=== PATIENT | male | born 1970 | race Caucasian/White ===

== ENCOUNTER 2019-12-14 11:41 | Emergency (ER) | payer OTHER ==
[~2019-12-14] VITALS: Ht 172.7 cm; Wt 99.8 kg
[~2019-12-14 11:41] MED LIST: HYDACE5 PO; MELO7.5 PO; METCAR750 PO; METPRE4DP PO; NAPR500 PO; OXYACE5T PO; RXHYDACE PO; RXOXYACE PO
[2019-12-14] MEDS ORDERED: METHADONE PO (12:08)
[2019-12-14] MEDS ORDERED: Cipro500 MG PO (12:39)
== END 2019-12-14 13:00 | disposition home or self-care (01) ==
LOC: ER 11:41
DX: S91.134A Puncture wound without foreign body of right lesser toe(s) without damage to nail, initial encounter (principal); S80.11XA Contusion of right lower leg, initial encounter; Z23 Encounter for immunization; Z79.899 Other long term (current) drug therapy; W45.0XXA Nail entering through skin, initial encounter
CPT/HCPCS: 90471; 90714; 99282-25

== ENCOUNTER 2020-01-26 18:00 | Emergency (ER) | payer OTHER ==
[~2020-01-26] VITALS: Ht 172.7 cm; Wt 108.9 kg
[~2020-01-26 18:00] MED LIST changes: +Cipro500 MG PO; +METHADONE PO
[2020-01-26] MEDS ORDERED: Veetids 500500 MG PO (18:19)
[2020-01-26] MEDS ORDERED: IBU800 MG PO (18:19)
== END 2020-01-26 18:21 | disposition home or self-care (01) ==
LOC: ER 18:00
DX: K02.9 Dental caries, unspecified (principal)
CPT/HCPCS: 99282

== ENCOUNTER 2020-08-09 19:51 | Observation (INO) | payer OTHER ==
[~2020-08-09] VITALS: Ht 172.7 cm; Wt 120.1 kg
[~2020-08-09 19:51] MED LIST changes: +IBU800 MG PO; +Veetids 500500 MG PO
[2020-08-09 22:07] LABS: BASOPHILS ABSOLUTE AUTO 0.03 K/mm3 (0.00-0.23); BASOPHILS PERCENT AUTO 0 % (0-2); EOSINOPHILS ABSOLUTE AUTO 0.01 K/mm3 (0.00-0.68); EOSINOPHILS PERCENT AUTO 0 % (0-6); Hematocrit 40.3 % (37.0-53.0); Hemoglobin 12.7 g/dL (13.5-17.5); IMMATURE GRAN ABSOLUTE AUTO 0.06 K/mm3 (0.00-0.10); IMMATURE GRAN PERCENT AUTO 1 % (0-1); LYMPHOCYTES ABSOLUTE AUTO 1.13 K/mm3 (0.84-5.20); LYMPHOCYTES PERCENT AUTO 9 % (21-46); MONOCYTES ABSOLUTE AUTO 1.43 K/mm3 (0.16-1.47); MONOCYTES PERCENT AUTO 11 % (4-13); Mean Corpuscular HGB 28.9 pg (26.0-34.0); Mean Corpuscular HGB Conc 31.5 g/dL (31.5-36.5); Mean Corpuscular Volume 92 fL (80-100); Mean Platelet Volume 10.1 fL (9.1-12.4); NEUTROPHILS ABSOLUTE AUTO 10.58 K/mm3 (1.96-9.15); NEUTROPHILS PERCENT AUTO 80 % (41-73); Platelet Count 230 K/mm3 (150-400); RDW Coefficient Variation 14.4 % (11.7-14.2); RDW Standard Deviation 48.6 fL (35.1-46.3); Red Blood Cell Count 4.39 M/mm3 (4.30-5.90); White Blood Cell Count 13.24 K/mm3 (4.00-11.30)
[2020-08-09 22:25] LABS: Alanine Aminotransfer (ALT/SGP 55 U/L (12-78); Albumin, Blood 3.3 g/dL (3.4-5.0); Alk Phos 93 U/L (50-136); Anion Gap 6 mmol/L (6-16); Aspartate Aminotrans (AST/SGOT 36 U/L (12-37); Bilirubin, Total 0.2 mg/dL (0.1-1.0); Blood Urea Nitrogen 18 mg/dL (8-24); Bun/Creatinine Ratio 22.6 (12.0-20.0); CO2, Blood 32 mmol/L (21-32); Calcium, Blood 8.7 mg/dL (8.5-10.1); Chloride, Blood 105 mmol/L (98-108); Globulin, Blood 3.3 g/dL (2.2-4.0); Glomerular Filtration Rate >60 (60-); Glucose, Blood 90 mg/dL (70-99); Potassium, Blood 4.4 mmol/L (3.5-5.5); Sodium, Blood 143 mmol/L (136-145); Total Protein, Blood 6.6 g/dL (6.4-8.2)
[2020-08-10] MEDS ORDERED: MULVITA PO (01:10)
--- NOTE | 2020-08-10 01:28 | NUR ---
PT ARRIVED TO ROOM FROM ER. PT TRANSFERRED SELF FROM STRETCHER TO BED W/MIN ASSIST. LEFT FLANK/HIP VISIBLY SWOLLEN, FIRM TO PALP. PT REP NUMBNESS IN SWOLLEN AREA. PT REP PAIN IN LEFT SHOULDER, CAN ONLY LIFT ARM MINIMALLY R/T PAIN. INSTRUCTION LIBRARIAN STRONG. ABRASION NOTED JUST ABOVE LEFT KNEE. PT REP PAIN GOLDY AT THIS TIME, PILLOW PLACED BENEATH LEFT SHOULDER FOR COMFORT. PT ORIENTED TO ROOM/CALL LIGHT. PLAN TO MONITOR NAD TX PER ORDERS.
[2020-08-10 07:30] LABS: Hematocrit 37.2 % (37.0-53.0); Hemoglobin 11.9 g/dL (13.5-17.5); Mean Corpuscular HGB 29.8 pg (26.0-34.0); Mean Corpuscular Volume 93 fL (80-100); Mean Platelet Volume 10.4 fL (9.1-12.4); Platelet Count 208 K/mm3 (150-400); RDW Coefficient Variation 14.6 % (11.7-14.2); RDW Standard Deviation 49.5 fL (35.1-46.3); Red Blood Cell Count 3.99 M/mm3 (4.30-5.90); White Blood Cell Count 8.28 K/mm3 (4.00-11.30)
--- NOTE | 2020-08-10 07:37 | NUR ---
PT HAD NO ACUTE CHANGES SINCE ARRIVING TO FLOOR. LEFT HIP/FLANK REMAINS FIRM/SWOLLEN, NO SIG CHANGES NOTED IN SIZE. PT CONT TO REP NUMBNESS IN SWOLLEN AREA. LEFT SHOULDER PAINFUL W/MVMT. PT DENIED NEED FOR PAIN MEDS. PT NPO, IVF CONT PER ORDERS. REPORT GIVEN TO DAY RN.
--- NOTE | 2020-08-10 14:45 | NUR ---
DISCHARGE PT PROVIDED WITH WRITTEN AND VERBAL DISCHARGE INSTRUCTIONS. PT REPORTED PAIN MANAGED PRIOR TO DISCHARGE, PT WAS GIVEN TYLENOL FOR PAIN MANAGMENT. PRESCRIPTION FOR WALKER PROVIDED. PT REPORTED UNDERSTANDING INSTRUCTIONS. PT ESCORTED OUT IN W/C BY VAISHALI JARAMILLO AT APPROXIMATELY [id number].
== END 2020-08-10 14:10 | disposition home or self-care (01) ==
LOC: ER 19:51 → SURS 19:52
PROVIDERS: Emergency Medicine; ADMIT Surgery
DX: S70.02XA Contusion of left hip, initial encounter (principal); S49.92XA Unspecified injury of left shoulder and upper arm, initial encounter; G89.29 Other chronic pain; M54.2 Cervicalgia; E66.9 Obesity, unspecified; Z68.37 Body mass index [BMI] 37.0-37.9, adult; Z79.899 Other long term (current) drug therapy; Z23 Encounter for immunization; W11.XXXA Fall on and from ladder, initial encounter
CPT/HCPCS: 36415; 70450; 71260; 72125; 73560-LT; 74177; 80053; 83690; 85025; 85027; 86850; 86900; 86901; 97110; 97116; 97162; A9270; J1170; J2405; J7030; Q9967

== ENCOUNTER 2021-03-04 12:19 | Emergency (ER) | payer OTHER ==
[~2021-03-04] VITALS: Ht 172.7 cm; Wt 117.9 kg
[~2021-03-04 12:19] MED LIST changes: +MULVITA PO
[2021-03-04] MEDS ORDERED: Keflex500 MG PO (13:53)
== END 2021-03-04 14:15 | disposition home or self-care (01) ==
LOC: ER 12:19
DX: M70.22 Olecranon bursitis, left elbow (principal); L03.114 Cellulitis of left upper limb
CPT/HCPCS: 73080; 96372; 99283-25; A9270; J1885

== ENCOUNTER 2023-10-03 13:02 | Emergency (ER) | payer OTHER ==
[~2023-10-03] VITALS: Ht 172.7 cm; Wt 124.7 kg
[~2023-10-03 13:02] MED LIST changes: +Keflex500 MG PO
[2023-10-03 13:47] LABS: BASOPHILS ABSOLUTE AUTO 0.03 K/mm3 (0.00-0.23); BASOPHILS PERCENT AUTO 0 % (0-2); EOSINOPHILS ABSOLUTE AUTO 0.04 K/mm3 (0.00-0.68); EOSINOPHILS PERCENT AUTO 1 % (0-6); Hematocrit 53.5 % (37.0-53.0); IMMATURE GRAN ABSOLUTE AUTO 0.05 K/mm3 (0.00-0.10); IMMATURE GRAN PERCENT AUTO 1 % (0-1); LYMPHOCYTES ABSOLUTE AUTO 0.96 K/mm3 (0.84-5.20); LYMPHOCYTES PERCENT AUTO 14 % (21-46); MONOCYTES ABSOLUTE AUTO 0.91 K/mm3 (0.16-1.47); MONOCYTES PERCENT AUTO 13 % (4-13); Mean Corpuscular HGB 30.9 pg (26.0-34.0); Mean Corpuscular HGB Conc 33.6 g/dL (31.5-36.5); Mean Corpuscular Volume 92 fL (80-100); Mean Platelet Volume 10.3 fL (9.1-12.4); NEUTROPHILS ABSOLUTE AUTO 5.08 K/mm3 (1.96-9.15); NEUTROPHILS PERCENT AUTO 72 % (41-73); Platelet Count 233 K/mm3 (150-400); RDW Coefficient Variation 14.5 % (11.7-14.2); RDW Standard Deviation 48.5 fL (35.1-46.3); Red Blood Cell Count 5.83 M/mm3 (4.30-5.90); White Blood Cell Count 7.07 K/mm3 (4.00-11.30)
[2023-10-03 14:13] LABS: Albumin, Blood 3.7 g/dL (3.4-5.0); Albumin/Globulin Ratio 1.1 (0.8-1.8); Bilirubin, Total 0.7 mg/dL (0.1-1.0); Bun/Creatinine Ratio 12.6 (12.0-20.0); Calcium, Blood 9.2 mg/dL (8.5-10.1); Creatinine, Blood 0.79 mg/dL (0.60-1.20); Globulin, Blood 3.5 g/dL (2.2-4.0); Potassium, Blood 3.9 mmol/L (3.5-5.5); Total Protein, Blood 7.2 g/dL (6.4-8.2)
[2023-10-03 14:34] LABS: Source, Urine Clean Catch
[2023-10-03 14:44] LABS: Appearance, Urine Clear (Clear); Bilirubin, Urine Neg (Neg); Blood, Urine Neg (Neg); Color, Urine Yellow (P-Yellow); Glucose Qualitative, Urine Neg (Neg); Ketones, Urine Neg (Neg); Leukocyte Esterase, Urine Neg (Neg); Nitrite, Urine Neg (Neg); Protein, Urine 2+ (Neg); Urobilinogen, Urine NORM (Normal); pH, Urine 6.5 (5.0-8.0)
[2023-10-03 14:58] LABS: Bacteria Few /hpf; Hyaline Casts 0-2 /lpf (0-2); Mucus Light (0-Heavy); Red Blood Cells, Urine 0-2 /hpf (0-2); Squamous Epithelial Cells Few /hpf (Few)
[2023-10-03 14:59] LABS: Amorphous Light (0-Heavy)
[2023-10-03 15:53] VITALS: BP 140/97
== END 2023-10-03 16:05 | disposition home or self-care (01) ==
LOC: ER 13:02
PROVIDERS: Student in an Organized Health Care Education/Training Program
DX: M79.89 Other specified soft tissue disorders (principal); Z79.899 Other long term (current) drug therapy
CPT/HCPCS: 71046; 80053; 81001; 83880; 85025; 93005; 93010; 99284-25

== ENCOUNTER 2025-04-22 07:48 | Day surgery (SDC) | payer OTHER ==
[~2025-04-22] VITALS: Ht 172.7 cm; Wt 125.0 kg
[2025-04-22] VITALS (12 sets, daily range): BP systolic 113–157; BP diastolic 73–125
[~2025-04-22 07:48] MED LIST changes: +ALBU90OI INH; +BREYNA 80-4.510.3 GM; +SYMBICORT 160-4.6 GM
[2025-04-22] MEDS ORDERED: Verapamil HCL 2.5 MG/ML 2ML Injection ONE (07:53)
[2025-04-22] MEDS ORDERED: NS 250 ML IV ONE ×2 (07:54→09:22)
[2025-04-22] MEDS ORDERED: Nitroglycerin 2 MG/20 ML BTL ONE (07:54)
[2025-04-22] MEDS ORDERED: Heparin Sodium 1000 Units/ML 10ML MDV ONE ×2 (07:54→09:44)
[2025-04-22] MEDS ORDERED: NS 1,000 ML IV ONE ×2 (07:54→08:29)
[2025-04-22] MEDS ORDERED: ASPI81CH PO (08:06)
[2025-04-22] MEDS ORDERED: FentaNYL Citrate 50 MCG/ML 2 ML Injection ONE (08:29)
[2025-04-22] MEDS ORDERED: Midazolam HCl 1MG / ML 2ML Vial ONE (08:29)
[2025-04-22] MEDS ORDERED: NS 0 ML IV ONE ×2 (08:31→08:33)
[2025-04-22] MEDS ORDERED: Adenosine 3 MG/ML 30 ML Vial ONE (08:32)
[2025-04-22 08:47] LABS: Prothrombin Time Results 11.5 Sec (9.7-11.5)
[2025-04-22 09:03] LABS: Anion Gap 9.0 mmol/L (3-11); Blood Urea Nitrogen 16.0 mg/dL (8-24); CO2, Blood 29.0 mmol/L (21-32); Calcium, Blood 9.7 mg/dL (8.5-10.1); Chloride, Blood 106.0 mmol/L (98-108); Creatinine, Blood 0.98 mg/dL (0.60-1.20); Glucose, Blood 126.0 mg/dL (70-99); Potassium, Blood 4.0 mmol/L (3.5-5.5); Sodium, Blood 140.0 mmol/L (136-145)
[2025-04-22 09:41] LABS: pH Blood Arterial 7.41 (7.35-7.45)
[2025-04-22] MEDS ORDERED: EpiNEPhrine 1 MG/1 ML 1ML Vial ONE (09:51)
[2025-04-22] MEDS ORDERED: Phenylephrine HCl 100 MCG/ML-NS 10MLSYR (1MG/10ML) ONE (09:52)
--- NOTE | 2025-04-22 10:27 | NUR ---
PT BACK TO RECOERY ROOM. DR RODRIGUEZ AT BEDSIDE FOR UPDATE. PT SITTING UP IN RECLINER. EATING AND DRINKING COFFEE. PT ON 4 L VIA NC.
--- NOTE | 2025-04-22 10:59 | NUR ---
PT GIVEN ICE WATER. R RADIAL SITE IS SOFT, NON TENDER, NO BLEEDING. RAC VENOUS SITE SOFT, NO HEMATOMA NOTED.
--- NOTE | 2025-04-22 11:42 | NUR ---
BEGAN DEFLATING TR BAND. 2CC AIR OUT. R RADAIL SITE SOFT, NON TENDER NO BLEEDING OR HEMATOMA. DRESSING TO RAC, C/D/I
--- NOTE | 2025-04-22 11:54 | NUR ---
TR BAND FULLY DEFLATED.
--- NOTE | 2025-04-22 12:07 | NUR ---
PT FATHER NOTIFIED THAT PT WILL BE D/C IN 1 HOUR. STS HE WILL BE ON HIS WAY.
--- NOTE | 2025-04-22 13:22 | NUR ---
PT DEMONSTRATES CORRECT PRECAUTIONS OF R WRIST. PT GETTING DRESSED. TR BAND REMOVED AD CLOTH DOT APPLIED. IV D/C CATHETER INTACT. PT WHEELED OUT OF DEPT WITH D/C INSTRUCTIONS IN HAND.
== END 2025-04-22 23:00 | disposition home or self-care (01) ==
LOC: MHTC 07:48
PROVIDERS: Student in an Organized Health Care Education/Training Program
DX: I27.20 Pulmonary hypertension, unspecified (principal); I25.10 Atherosclerotic heart disease of native coronary artery without angina pectoris; J96.11 Chronic respiratory failure with hypoxia; J45.40 Moderate persistent asthma, uncomplicated; G47.33 Obstructive sleep apnea (adult) (pediatric); Z79.899 Other long term (current) drug therapy
CPT/HCPCS: 76937; 80048; 82803; 85610; 93460; C1769; C1887; C1894; J0153; J0169; J0461; J1644; J2250; J2371; J3010; J7030; J7050; Q9967